=== PATIENT | male | born 1995 | race Caucasian/White ===

== ENCOUNTER 2019-06-16 11:26 | Emergency (ER) | payer OTHER ==
[2019-06-16] MEDS ORDERED: IBUPROFEN 800 MG TABLET PO ONE (12:45)
--- NOTE | 2019-06-16 12:45 | ER Document Report ---
HPI - HPI Patient complains to provider of: Bilateral hand pain Time Seen by Provider: 06/16/19 12:35 Pain Level: 2 Context: 24-year-old male with no past medical history presents emergency department with complaints of bilateral hand numbness and tingling with swelling and pain past 2 weeks. 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 He denies working with chemicals. Denies injury. Patient does have some superficial scratches to his hands and his forearms. He reports he cuts himself working at the yard. Denies fever nausea vomiting diarrhea. No obvious deformity no obvious swelling Associated Symptoms: None Exacerbated by: Denies Relieved by: Denies Similar symptoms previously: No Recently seen / treated by doctor: No - MUSCULOSKELETAL Musculoskeletal: REPORTS: Extremity pain Past Medical History - General Information source: Patient - Social History Smoking Status: Current Every Day Smoker Cigarette use (# per day): Yes Frequency of alcohol use: None Drug Abuse: None Lives with: Family Family History: Other - Arthritis Patient has suicidal ideation: No Patient has homicidal ideation: No - Medical History Medical History: Negative Surgical Hx: Negative Vertical Provider Document - CONSTITUTIONAL Agree With Documented VS: Yes Exam Limitations: No Limitations General Appearance: WD/WN, No Apparent Distress - INFECTION CONTROL TRAVEL OUTSIDE OF THE [place] IN LAST 30 DAYS: No - HEENT HEENT: Atraumatic, Normocephalic - NECK Neck: Normal Inspection, Supple - RESPIRATORY Respiratory: Breath Sounds Normal, No Respiratory Distress - CARDIOVASCULAR Cardiovascular: Regular Rate - MUSCULOSKELETAL/EXTREMETIES Musculoskeletal/Extremeties: MAEW, FROM, Non-Tender - bilateral hands non ttp, cap refill less than 3 seconds good radial pulses full range of motion no obvious deformities no obvious swelling. Patient has full range of motion. - NEURO Level of Consciousness: Awake, Alert, Appropriate Motor/Sensory: No Motor Deficit - DERM Integumentary: Warm, Dry, No Rash Course - Re-evaluation Re-evalutation: 06/16/19 16:43 No obvious deformity no swelling no erythema no warmth to bilateral hands. Patient was instructed on the importance of follow-up with primary care provider for referral to blending tank helper or neurologist as indicated. He does have insurance. He reports he would follow-up. He reports both of his parents have rheumatoid arthritis. He was instructed to return here for any concerns. He verbalized understanding to all instruction - Vital Signs Vital signs: Temp Pulse Resp BP Pulse Ox 97.7 F 98 16 154/73 H 99 06/16/19 12:02 06/16/19 12:02 06/16/19 12:02 06/16/19 12:02 06/16/19 12:02 Discharge - Discharge Clinical Impression: bilateral hand pain and numbness Condition: Stable Disposition: HOME, SELF-CARE Additional Instructions: *You have been evaluated for bilateral hand pain and numbness *Monitor your symptoms *Take ibuprofen as indicated *Follow up with a primary care provider within 1 week for referral to neurology as indicated *Return to ED for worsening condition, changes, needs Referrals: TOMI SULLIVAN MD [EMERITUS] - Follow up in 3-5 days
[2019-06-16 13:00] VITALS: BP 136/72
== END 2019-06-16 12:58 | disposition home or self-care (01) ==
LOC: ER 11:26
DX: S60.512A Abrasion of left hand, initial encounter (principal); S60.511A Abrasion of right hand, initial encounter; S50.812A Abrasion of left forearm, initial encounter; S50.811A Abrasion of right forearm, initial encounter; W45.8XXA Other foreign body or object entering through skin, initial encounter; Y93.89 Activity, other specified; R20.0 Anesthesia of skin; R20.2 Paresthesia of skin; M79.641 Pain in right hand; M79.642 Pain in left hand; F17.210 Nicotine dependence, cigarettes, uncomplicated
CPT/HCPCS: 99283

== ENCOUNTER 2020-02-15 16:27 | Emergency (ER) | payer SELFPAY ==
[2020-02-15 16:42] VITALS: BP 144/78
[2020-02-15] MEDS ORDERED: OXYCODONE-ACETAMINOPHEN 5-325 MG TABLET PO ONE (16:47)
--- NOTE | 2020-02-15 16:50 | ER Document Report ---
ED Medical Screen (RME) - General Chief Complaint: Fall Stated Complaint: FALL/RIB AND LEFT WRIST PAIN Time Seen by Provider: 02/15/20 16:43 Mode of Arrival: Ambulatory Information source: Patient Notes: 24-year-old male patient presents emergency department chief complaint of left forearm pain and posterior rib pain and back pain. Patient reports yesterday he fell less than 10 feet off of a banister. He denies seeking any medical treatment at that time. There is what appears to be a dislocation to the left forearm, also erythema surrounding the area. Patient is an IV drug user. Tenderness to palpate over the thoracic region and bilateral thoracic paraspinous muscle tenderness. I have greeted and performed a rapid initial assessment of this patient. A comprehensive ED assessment and evaluation of the patient, analysis of test results and completion of the medical decision making process will be conducted by additional ED providers. I have specifically instructed the patient or family members with the patient to immediately return to any nursing staff should anything change in the patient's condition or with their chief complaint. TRAVEL OUTSIDE OF THE [place] IN LAST 30 DAYS: No - Related Data Allergies/Adverse Reactions: No Known Allergies Allergy (Verified 02/15/20 16:42) Past Medical History - Social History Chew tobacco use (# tins/day): No Frequency of alcohol use: None Drug Abuse: Heroin Physical Exam - Vital signs Vitals: Temp Pulse Resp BP Pulse Ox 99.1 F 121 H 18 144/78 H 97 02/15/20 16:38 02/15/20 16:38 02/15/20 16:38 02/15/20 16:38 02/15/20 16:38 Course - Vital Signs Vital signs: Temp Pulse Resp BP Pulse Ox 99.1 F 121 H 18 144/78 H 97 02/15/20 16:38 02/15/20 16:38 02/15/20 16:38 02/15/20 16:38 02/15/20 16:38
--- NOTE | 2020-02-15 17:28 | RADIOLOGY REPORT (SQ) ---
EXAM DESCRIPTION: FOREARM LEFT COMPLETED DATE/TIME: 02/15/2020 5:16 pm REASON FOR STUDY: fall with swelling/probable dislocation COMPARISON: None. NUMBER OF VIEWS: Two views. TECHNIQUE: Two radiographic images acquired of the left forearm, including elbow and wrist in at [address] one projection. LIMITATIONS: None. FINDINGS: MINERALIZATION: Normal. BONES: No acute fracture. No worrisome bone lesions. SOFT TISSUES: Distal soft tissue swelling on the radial aspect of the forearm. OTHER: No other significant finding. IMPRESSION: Soft tissue swelling. No osseous abnormality. TECHNICAL DOCUMENTATION: JOB ID: [id number] 2010 [employer]- All Rights Reserved Reading location - IP/workstation name: [email or web address]
--- NOTE | 2020-02-15 17:31 | RADIOLOGY REPORT (SQ) ---
EXAM DESCRIPTION: RIBS BILATERAL W/PA CXR IMAGES COMPLETED DATE/TIME: 02/15/2020 5:16 pm REASON FOR STUDY: bilateral rib/back pain after fall COMPARISON: None. TECHNIQUE: Frontal view of the chest and additional views of the right and left ribs acquired. NUMBER OF VIEWS: Six view. LIMITATIONS: None. FINDINGS: FRONTAL CXR: No pneumothorax. No pleural effusion. No atelectasis or infiltrates. RIBS: No displaced rib fractures. No lytic or blastic bony lesions. OTHER: No other significant finding. IMPRESSION: NO PNEUMOTHORAX. NO DISPLACED RIB FRACTURES. COMMENT: SITE OF TRAUMA/COMPLAINT MARKED/STAMP COMPLETED: NO. TECHNICAL DOCUMENTATION: JOB ID: [id number] 2010 [employer]- All Rights Reserved Reading location - IP/workstation name: [email or web address]
[2020-02-15 19:09] LABS: ABSOLUTE BASOPHILS # (AUTO) 0.1 10^3/uL (0.0-0.2); ABSOLUTE MONOCYTES (AUTO) 1.6 10^3/uL (0.1-1.4); ABSOLUTE NEUT (AUTO) 11.9 10^3/uL (1.7-8.2); BASOPHILS % (AUTO) 0.3 % (0-2); HEMATOCRIT 36.3 % (37.9-51.0); HEMOGLOBIN 11.9 g/dL (13.5-17.0); MEAN CORPUSCULAR HEMOGLOBIN 24.7 pg (27.0-33.4); MEAN CORPUSCULAR HGB CONC 32.7 g/dL (32.0-36.0); MEAN CORPUSCULAR VOLUME 76 fl (80-97); MONOCYTES % (AUTO) 8.5 % (3-13); PLATELET COUNT 296 10^3/uL (150-450); RED BLOOD COUNT 4.81 10^6/uL (4.35-5.55); RED CELL DISTRIBUTION WIDTH 19.8 % (11.5-14.0); SEGMENTED NEUTROPHILS % (AUTO) 64.2 % (42-78); TOTAL CELLS COUNTED % (AUTO) 100 %; WHITE BLOOD COUNT 18.6 10^3/uL (4.0-10.5)
[2020-02-15 19:27] LABS: ALBUMIN 3.9 g/dL (3.5-5.0); ALKALINE PHOSPHATASE 250 U/L (38-126); ANION GAP 13 (5-19); ASPARTATE AMINO TRANSFERASE 570 U/L (17-59); BILIRUBIN,DIRECT 0.6 mg/dL (0.0-0.4); BILIRUBIN,TOTAL 1.3 mg/dL (0.2-1.3); BLOOD UREA NITROGEN 10 mg/dL (7-20); C-REACTIVE PROTEIN 51.6 mg/L (<10.0); CALCIUM 9.1 mg/dL (8.4-10.2); CARBON DIOXIDE 22 mmol/L (22-30); CHLORIDE 101 mmol/L (98-107); GLUCOSE 114 mg/dL (75-110); POTASSIUM 4.2 mmol/L (3.6-5.0); TOTAL PROTEIN 7.9 g/dL (6.3-8.2)
[2020-02-15 20:04] LABS: ERYTHROCYTE SEDIMENTATION RATE 45 mm/hr (0-15)
== END 2020-02-16 06:01 | disposition left against medical advice (07) ==
LOC: ER 16:27
DX: M79.632 Pain in left forearm (principal); R07.81 Pleurodynia; M54.9 Dorsalgia, unspecified; W17.89XA Other fall from one level to another, initial encounter; Z53.20 Procedure and treatment not carried out because of patient's decision for unspecified reasons; L53.9 Erythematous condition, unspecified
CPT/HCPCS: 36415; 71111; 80053; 85025; 85652; 86140; 99281